=== PATIENT | male | born 1985 | race Caucasian/White ===

== ENCOUNTER 2017-01-14 11:14 | Emergency (ER) | payer BC ==
--- NOTE | ~2017-01-14 | CR21 ---
[facility] [[email or web address]]. [facility] A Service [facility] RADIOLOGY TEXT RESULTS PATIENT: MIKI OLIVA LOCATION: SED : 83 UNIT #: [id number] AGE: [address]: Peyton Milton APRN SEX: M ORDER DR: [id number] [place] [id number] E MR#: [id number] Acc #: [id number] NAME: MIKI OLIVA : 1985 SEX: M STUDY DATE/TIME: 01/14/2017 UNIT: SED ROOM: STUDY DESCRIPTION: CR Ankle Min 3 Views Rt Attending Physician: Peyton Milton A.P.R.N. Ordering Physician: Peyton Milton A.P.R.N. Primary Care Physician: Primary Care Physician No MEDICAL IMAGING REPORT This report is preliminary unless electronic signature is present. EXAM Ankle 3 views right HISTORY Pain and swelling started yesterday morning. Surgery 3 years ago. No recent injury. COMMENT 3 views of the right ankle are reviewed. There is evidence of previous screw since removed with metal densities medially and laterally along the screw tract including the medial aspect of the distal tibia and the lateral aspect of the distal fibula. The ankle mortise is anatomic. There is some soft tissue swelling more so medially than laterally. This is nonspecific. No acute fracture or dislocation or foreign body appreciated. IMPRESSION Evidence of prior internal fixation ankle. There are now metallic densities seen at the lateral aspect of the distal fibula medial aspect of the distal tibia and there is a screw track across the distal tibia and fibula consistent with the prior internal fixation but the screws itself has been removed. The ankle mortise is anatomic and there is no acute fracture appreciated. Soft tissue swelling is best appreciated medial ankle. [facility] A Service [facility] RADIOLOGY TEXT RESULTS PATIENT: MIKI OLIVA LOCATION: SED : 83 UNIT #: [id number] AGE: [address]: Peyton Milton APRN SEX: M ORDER DR: Dictated by... Daria Linton M.D. THIS IS AN ELECTRONICALLY VERIFIED REPORT Daria Linton M.D. at 01/15/2017 4:11 PM JEF/china TD: 01/15/2017 00:55 JOB #: [id number] MEDICAL IMAGING REPORT
--- NOTE | ~2017-01-14 | CR127 ---
[facility]. [facility] A Service of [facility] RADIOLOGY TEXT RESULTS PATIENT: MIKI OLIVA LOCATION: SED : 83 UNIT #: [id number] AGE: [address]: Peyton Milton APRN SEX: M ORDER DR: [id number] [place] [id number] E MR#: [id number] Acc #: [id number] NAME: MIKI OLIVA : 1985 SEX: M STUDY DATE/TIME: 01/14/2017 11:29 UNIT: SED ROOM: STUDY DESCRIPTION: CR Foot Complete Min 3 View Rt Attending Physician: Peyton Milton A.P.R.N. Ordering Physician: Peyton Milton A.P.R.N. Primary Care Physician: No Primary Care Physician MEDICAL IMAGING REPORT This report is preliminary unless electronic signature is present. EXAM Right foot HISTORY Swelling started yesterday morning with pain, surgery 3 years ago of the ankle. COMMENT 3 views of the right foot are reviewed. The frontal view is limited technically. See the ankle dictation. There is no acute fracture, dislocation or radiopaque foreign body. IMPRESSION See the separate ankle dictation negative plain film assessment right foot. Dictated by... Daria Linton M.D. THIS IS AN ELECTRONICALLY VERIFIED REPORT Daria Linton M.D. at 01/15/2017 6:20 AM JEF/china TD: 01/15/2017 01:10 JOB #: [id number] MEDICAL IMAGING REPORT
== END 2017-01-14 12:34 | disposition home or self-care (01) ==
LOC: SED 11:14
DX: S93.611A Sprain of tarsal ligament of right foot, initial encounter (principal); S93.621A Sprain of tarsometatarsal ligament of right foot, initial encounter; X58.XXXA Exposure to other specified factors, initial encounter; Y92.9 Unspecified place or not applicable
CPT/HCPCS: 29405; 73610; 73630; 99283